=== PATIENT | female | born 1945 | race Caucasian/White ===

== ENCOUNTER → 2017-02-25 | Outpatient (CLI) | payer MEDICARE, MEDICAID ==
[~2017-02-25] MED LIST: /DULO30CA PO; /INSULEV SC; /ROPI1TA; ACET500C PO; AMIT10TA2 PO; AMIT50TA2; AMITIZA; AMITZA; ASPI325T PO; BACL10TA2; COLA100C2 PO; DESIPRAMINE; DILA100C; DILA100C PO; DIOV320T PO; HYDROCODONE PO; Insulin Aspart; KLOR10TA; LASI20TA PO; LASI40TA; LISI5TAB; LOPR50TA OR; LOVAZA PO; MAGN500T2 PO; MECL25TA2 PO; METO10TA2 OR; MIRALEX PO; NOVO70VL; NOVO70VL SC; POTA20TA2 PO; PRIL20CA PO; TOPI25TA2; TRIC145T19; VEGETABLE LAXATIVE; VITAMIN D; VITAMIN D50000 UNT PO; ZOCO80TA PO; ZOLO100T
--- NOTE | 2017-02-25 09:18 | REP ---
Chest CT without IV contrast: Comparisons are 07/31/2014, 08/04/2016 and 12/24/2016. There is a ground-glass nodule in the apex of the left lung today measuring 17 mm greatest diameter (7 mm on 07/31/2014, 14 mm 08/04/2016 and 11 mm on 12/24/2016). There is a nodule posteriorly in the right middle lobe today measuring 11 mm (6 mm on 07/31/2014, 7 mm on 08/04/2016, and 12 mm on 12/24/2016). There is a nodule in the right lower lobe today measuring 6 mm (6 mm, 07/31/2014, 6 mm 08/04/2016 and 6 mm on 12/24/2016). The variance in measurement size is related to placement of the electronic calipers manually. There are no infiltrates or effusions. There is no mediastinal lymph node enlargement. There are a few normal-sized nodes. In the absence of IV contrast the study is insensitive for hilar adenopathy. There is no axillary adenopathy. The unenhanced thoracic aorta is unremarkable. Cardiac size is mildly enlarged. There is no pericardial effusion. In the upper abdomen there is no adrenal mass. Surgical clips in the gallbladder fossa. Visualized portions of the unenhanced liver, pancreas and spleen are unremarkable. Impression: The ground-glass nodule in the apex of the left lung has gradually increased in size. The nodule posteriorly in the right middle lobe has gradually increased in size. The right lower lobe nodule is stable in size measuring 6 mm compared to 07/31/2014, therefore, likely benign. There is no mediastinal adenopathy. The current study is insensitive for hilar adenopathy in the absence of IV contrast. However, on 12/24/2016 with IV contrast, there was no hilar adenopathy. There is no axillary adenopathy. No adrenal mass. Cholecystectomy. Mild cardiomegaly. Signed by Wei Morales MD 02/25/2017 09:10 A
== END ==
LOC: M RAD 07:41
PROVIDERS: ATTEND Internal Medicine Pulmonary Disease
DX: R91.1 Solitary pulmonary nodule (principal)

== ENCOUNTER → 2017-08-24 | Outpatient (CLI) | payer MEDICARE, MEDICAID ==
--- NOTE | 2017-08-24 09:58 | REP ---
Clinical: Follow-up pulmonary nodule. Comparison: 02/25/2017, 02/07/2016. Findings: Bilateral predominantly perihilar and basilar chronic fibroatelectatic changes with associated mild bronchiectasis is again identified and essentially unchanged. The ground-glass opacity in the left apex currently measures 16 mm and is increased from 02/07/2016, but remains relatively stable when compared to 02/25/2017. The nodular fibrotic changes in the superior right middle lobe adjacent to the fissure (image 47) appears gradually less conspicuous than prior examination. No new area of consolidation, significant nodule or mass lesion is appreciated. No pleural effusion/reaction. No pneumothorax. No obvious axillary or hilar adenopathy is appreciated. The mediastinum demonstrates very minimal atherosclerotic changes to the thoracic aorta and coronary arteries without aortic aneurysm or cardiomegaly. No pericardial effusion. Surrounding musculoskeletal structures are intact. Impression: 1. 16 mm ground-glass focus in the left apex has gradually increased from 2016 but remains stable when compared to most recent examination dated 02/25/2017. Continued follow-up 6-12 months may be warranted. 2. The remaining chronic changes including the nodular 7 mm focus in the right middle lobe remain relatively stable and consistent with benign chronic changes. 3. No new significant mediastinal or pleuroparenchymal process identified. Signed by Abdullahi Ag MD 08/24/2017 09:49 A
== END ==
LOC: M RAD 08:43
PROVIDERS: ATTEND Internal Medicine Pulmonary Disease
DX: R91.1 Solitary pulmonary nodule (principal)

== ENCOUNTER 2018-10-19 09:42 | Outpatient (CLI) | payer MEDICARE, MEDICAID ==
--- NOTE | 2018-10-19 12:47 | REP ---
MR BRAIN WITHOUT CONTRAST: HISTORY: Blood vessel injury. COMPARISON: 02/10/2013 Several punctate areas of increased signal intensity on T2-weighted images are present in the periventricular and subcortical white matter and radha. This represents small vessel ischemic disease. There is no intraparenchymal hemorrhage, infarct, mass or midline shift. The sella turcica is partially empty. The ventricular system and cortical sulci are dilated consistent with minimal volume loss. There is no extracerebral collection. Mucosal thickening is present in the left sphenoid sinus. IMPRESSION: Small vessel ischemic disease. Minimal volume loss. Electronically Signed by Elmo Orona MD 10/19/2018 12:47 P
== END 2018-10-19 12:48 | disposition home or self-care (01) ==
LOC: M SDC 09:42
PROVIDERS: ATTEND Physician Assistant Medical
DX: I67.9 Cerebrovascular disease, unspecified (principal); S09.0XXA Injury of blood vessels of head, not elsewhere classified, initial encounter; X58.XXXA Exposure to other specified factors, initial encounter; Y92.9 Unspecified place or not applicable; Y93.9 Activity, unspecified; Y99.9 Unspecified external cause status; R53.1 Weakness; G40.009 Localization-related (focal) (partial) idiopathic epilepsy and epileptic syndromes with seizures of localized onset, not intractable, without status epilepticus

== ENCOUNTER → 2018-11-01 | Outpatient (CLI) | payer MEDICARE, MEDICAID ==
--- NOTE | 2018-11-01 17:24 | REP ---
CT chest without contrast: History: Abnormal lung field findings. Comparison chest CT study August 24, 2017. The most remote chest CT study in the patient's electronic x-ray jacket is from April 09, 2010. There is a 16 mm ground-glass opacity again noted in the left lung apex in the upper lobe. This is unchanged from August 24, 2017. It is a little larger than July 2016. Previously noted 7 mm right middle lobe nodule is again seen unchanged. There are fibrotic changes in the bases bilaterally. There is a 5 mm stable right lower lobe nodule unchanged. There is heavy vascular calcification circumferentially about the proximal left subclavian artery. This it is a chronic finding as well. No mediastinal mass or adenopathy is observed. No adrenal lesion is observed. Clips in the gallbladder fossa. Impression: Stable nodular changes. No recent change in the 16 mm ground-glass opacity seen in the left lung apex. Electronically Signed by Bala Foote MD 11/01/2018 05:53 P
== END ==
LOC: M RAD 10:17
PROVIDERS: ATTEND Internal Medicine Pulmonary Disease
DX: R91.8 Other nonspecific abnormal finding of lung field (principal)

== ENCOUNTER 2021-05-24 13:52 | Outpatient (RCR) | payer MEDICARE, MEDICAID ==
[~2021-05-24 13:52] MED LIST changes: -/DULO30CA PO; -/INSULEV SC; -/ROPI1TA; +CYMB1CAP5 PO; +LEVE0.01 SC; +REQU1TAB16
== END 2021-05-28 ==
LOC: M PT 13:52
PROVIDERS: ATTEND Nurse Practitioner Family
DX: I89.0 Lymphedema, not elsewhere classified (principal)

== ENCOUNTER → 2021-06-27 | Outpatient (RCR) | payer MEDICARE, MEDICAID | LOC: M PT 06-05 10:24 | PROVIDERS: ATTEND Nurse Practitioner Family | DX: I89.0 Lymphedema, not elsewhere classified (principal) ==

== ENCOUNTER → 2021-12-23 | Outpatient (CLI) | payer MEDICARE, MEDICAID ==
[~2021-12-23] MED LIST changes: +ARFO15VI NEB; +BUDE0.5S6 NEB; +CAMPHOR TOP; +CETI10CH PO; +CULTPOW PO; +CYMB60CA4 PO; +ENEMENE6 PR; +EQL50TAB2 PO; +EUCECRE8 TP; +FERR324T21 PO; +FOLI1TAB11 PO; +GABA-283 PO; +GABA600T4 PO; +GLUC1KIT IM; +ICY5PAD2 TOP; +INSU100V2 SQ; +LANTINJ4 SC; +LEVO25TA5 PO; +LIDOCAINE 1% MDV 20ML VIAL As Ordered ONE; +MELA3TAB49 PO; +MELA5CAP2 PO; +MM S100C PO; +MOM30SS2 PO; +MUCI600T31 PO; +OMEP-173; +PHEN100C PO; +POTA1TAB23; +PRAV80TA2 PO; +ROPI1TAB3 PO; +SPIR-10 PO; +TORS20TA2 PO; +TRAM50TA2 PO
[2021-12-23 12:34] LABS: BASO % 0.8 % (0.0-1.0); EOS # 0.3 10^3/uL (0.0-0.5); EOS % 7.6 % (0.0-3.0); HEMATOCRIT 49.7 % (36.0-47.0); HEMOGLOBIN 16.2 g/dl (12.0-15.5); LYMPH # 1.1 10^3/uL (1.5-5.0); MEAN CORPUSCULAR HEMOGLOBIN 32.6 pg (27.0-33.0); MEAN CORPUSCULAR HGB CONC 32.6 g/dl (32.0-36.5); MONO # 0.3 10^3/uL (0.0-0.8); MONO % 8.4 % (2.0-8.0); NEUTROPHILS # 2.1 10^3/uL (1.5-8.5); NEUTROPHILS % 53.9 % (36.0-66.0); PLATELET COUNT, AUTOMATED 129 10^3/uL (150-450); RED BLOOD COUNT 4.97 10^6/uL (4.00-5.40); WHITE BLOOD COUNT 3.9 10^3/uL (4.0-10.0)
[2021-12-23 14:15] VITALS: BP 164/70
== END ==
LOC: M IRPRO 11:46
PROVIDERS: ATTEND Specialist
DX: D69.6 Thrombocytopenia, unspecified (principal); D72.819 Decreased white blood cell count, unspecified